=== PATIENT | female | born 1990 | race Caucasian/White ===

== ENCOUNTER 2018-09-20 13:56 | Emergency (ER) | payer OTHER ==
--- NOTE | 2018-09-20 14:36 | ED Physician Documentation ---
History of Present Illness - Stated complaint Stated Complaint: FACIAL NUMBNESS - Chief complaint Chief Complaint: Neuro - History obtained from History obtained from: Patient - History of Present Illness Timing: Other (1 month) Pain level max: 3 Pain level now: 0 Improved by: nothing Worsened by: nothing - Additonal information Additional information: 28-year-old female presents to the emergency department stating that she has intermittent numbness to the left side of her face. No weakness. No numbness or tingling. This lasts for a few minutes at a time and then generally resolves. This been ongoing for the past month or 2. No headache. Has had col on cancer in the past. She also states that she has sharp lancinating pain occasionally to the left side of the face Review of Systems Constitutional: denies: Fever, Chills Eyes: denies: Loss of vision, Decreased vision Ears: denies: Ear pain Nose: denies: Rhinorrhea / runny nose, Congestion Throat: denies: Sore throat Cardiac: denies: Chest pain / pressure GI: denies: Abdominal Pain, Nausea, Vomiting : denies: Now EGA Skin: denies: Rash Musculoskeletal: denies: Neck pain, Back pain Neurologic: denies: Seizure, Headache PD PAST MEDICAL HISTORY - Past Medical History Past Medical History: No - Past Surgical History Past Surgical History: No - Present Medications Home Medications: Ambulatory Orders Medication Instructions Recorded Confirmed carBAMazepine [TEGretol] 200 mg PO BID #20 tablet 09/20/18 - Allergies Allergies/Adverse Reactions: Allergies Allergy/AdvReac Type Severity Reaction Status Date / Time No Known Drug Allergies Allergy Verified 09/20/18 14:14 - Living Situation Living Arrangement: reports: At home - Social History Does the pt smoke?: No Does the pt have substance abuse?: No - Family History Family history: reports: Non contributory PD ED PE NORMAL - Vitals Vital signs reviewed: Yes - General General: Alert and oriented X 3, No acute distress, Well developed/nourished, Other (NIHSS @1423 is 0) - HEENT HEENT: PERRL, Ears normal, Moist mucous membranes, Pharynx benign, Dentition benign - Neck Neck: Supple, no meningeal sign, No JVD, No bruit - Cardiac Cardiac: RRR, No murmur, Strong equal pulses - Respiratory Respiratory: No respiratory distress, Clear bilaterally - Abdomen Abdomen: Soft, Non tender, Non distended - Back Back: No spinal TTP - Derm Derm: Warm and dry - Extremities Extremities: Normal ROM s pain - Neuro Neuro: Alert and oriented X 3, senior sharepoint architect 2-12 intact, No motor deficit, No sensory deficit, Normal speech - Psych Psych: Normal mood, Normal affect Results - Vitals Vitals: Vital Signs - 24 hr 09/20/18 09/20/18 14:11 15:04 Temperature 36.8 C 36.9 C Heart Rate 64 61 Respiratory 18 16 Rate Blood Pressure 122/78 120/70 O2 Saturation 100 97 Oxygen O2 Source Room air PD MEDICAL DECISION MAKING - ED course Complexity details: considered differential, d/w patient ED course: 28-year-old female with intermittent sharp pain in the V2 distribution of the left face. She also has numbness intermittently. This is in the same distribution. Normal exam at this time. Unclear etiology, possible trigeminal neuralgia? Will trial on Tegretol and see if this improves her symptoms. No evidence of stroke. Patient counseled regarding signs and symptoms for which I believe and urgent re-evaluation would be necessary. Patient with good understanding of and agreement to plan and is comfortable going home at this time This document was made in part using voice recognition software. While efforts are made to proofread this document, sound alike and grammatical errors may occur. Departure - Departure Disposition: 01 Home, Self Care Clinical Impression: Trigeminal anesthesia Condition: Good Instructions: ED Neuralgia Trigeminal Follow-Up: your,doctor in 1 week [Other] Prescriptions: carBAMazepine [TEGretol] 200 mg PO BID #20 tablet Comments: We will trial you on Tegretol and see if this helps her symptoms. Follow-up with your doctor for further care. If your symptoms do not improve then may consider an MRI or CT scan. Discharge Date/Time: 09/20/18 15:08
[2018-09-20 15:05] VITALS: BP 120/70
== END 2018-09-20 15:08 | disposition home or self-care (01) ==
LOC: ED 13:56
DX: G50.0 Trigeminal neuralgia (principal)
CPT/HCPCS: 99283

== ENCOUNTER 2019-03-05 18:32 | Emergency (ER) | payer OTHER ==
[2019-03-05 19:06] LABS: BASOPHILS % (AUTO) 0.4 %; EOSINOPHILS % (AUTO) 0.7 %; HGB - HEMOGLOBIN 14.2 g/dL (12.0-16.0); LYMPHOCYTES # (AUTO) 1.6 10^3/uL (1.5-3.5); LYMPHOCYTES % (AUTO) 29.5 %; MEAN CORPUSCULAR HEMOGLOBIN 31.1 pg (27.0-31.0); MEAN CORPUSCULAR HGB CONC 34.3 g/dL (32.0-36.0); MEAN CORPUSCULAR VOLUME 90.6 fL (81.0-99.0); MEAN PLATELET VOLUME 9.3 fL (7.9-10.8); MONOCYTES # (AUTO) 0.4 10^3/uL (0.0-1.0); MONOCYTES % (AUTO) 6.8 %; NEUTROPHILS # (AUTO) 3.5 10^3/uL (1.5-6.6); NEUTROPHILS % (AUTO) 62.2 %; PLT - PLATELET COUNT 220 10^3/uL (130-450); RED BLOOD COUNT 4.57 10^6/uL (4.20-5.40); RED CELL DISTRIBUTION WIDTH 12.6 % (12.0-15.0); WHITE BLOOD COUNT 5.6 x10^3/uL (4.8-10.8)
[2019-03-05 19:21] LABS: ALBUMIN 4.6 g/dL (3.2-5.5); ALBUMIN/GLOBULIN RATIO 1.8 (1.0-2.2); BILIRUBIN,TOTAL 0.4 mg/dL (0.2-1.0); CALCIUM 9.6 mg/dL (8.5-10.3); CREATININE 0.6 mg/dL (0.4-1.0); TOTAL PROTEIN 7.2 g/dL (6.7-8.2)
--- NOTE | 2019-03-05 19:37 | XRAY Report ---
Reason: chest pain Procedure Date: 03/05/2019 Accession Number: [id number] / [id number] Procedure: XR - Chest 1 View X-Ray CPT Code: 01792 FULL RESULT: EXAM: CHEST RADIOGRAPHY EXAM DATE: 03/05/2019 07:03 PM. CLINICAL HISTORY: Chest pain. COMPARISON: None. TECHNIQUE: 1 view. FINDINGS: Lungs/Pleura: No focal opacities evident. No pleural effusion. No pneumothorax. Mediastinum: Within exam limitations, the cardiomediastinal contour is normal. Other: None. IMPRESSION: Normal single view chest. RADIA
--- NOTE | 2019-03-05 19:49 | ED Physician Documentation ---
PD HPI CHEST PAIN - Stated complaint Stated Complaint: CP - Chief complaint Chief Complaint: Resp - History obtained from History obtained from: Patient - History of Present Illness Timing - onset: Today Timing - onset during: Other (driving) Timing - duration: Hours (6) Timing - details: Abrupt onset, Still present in ED Pain level now: 6 Quality: Sharp Location: Substernal, Left chest Radiation: No: Jaw, Neck Improved by: Rest Associated symptoms: No: Shortness of air, Diaphoresis, Nausea, Vomiting, Feeling faint / dizzy Recently seen: Not recently seen - Additional information Additional information: Is a 28-year-old woman who presents with complaints that around 2:00 this afternoon she was driving with her daughter in the backseat when she suddenly felt a intense pain in the left side of her chest when she was breathing in. She felt a little dizzy so she actually pulled over the side of the road and it started to ease off a little bit and the dizziness resolved. She continued driving home and spent the afternoon uncomfortable trying to lay down on the floor and play with her daughter. She took some ibuprofen about 600 mg it did not do anything to help alleviate the pain and she also took an antacid. Pain is eased off now to a dull 5 out of 6 pain just along the left side of her sternum. She recently took a trip to [place] by flight and says that she has not done any strenuous activity or recent heavy workouts. She is had a history of costochondritis in the past but felt like that was more on the left side of the chest. She denies recent illness of sore throat or stuffy nose. She does cough up some green-yellow phlegm on a frequent basis in the mornings. She denies history of DVT and denies stating her last menstrual period was February 20. She denies stating that she is abstinent. She does have a history of colon cancer with partial resection of her colon last March 2018. She is not receiving any chemotherapy. There is a strong family history of colon cancer. Review of Systems Constitutional: denies: Fever Nose: denies: Congestion Throat: denies: Sore throat Cardiac: reports: Chest pain / pressure. denies: Palpitations Respiratory: reports: Dyspnea. denies: Cough GI: denies: Abdominal Pain, Nausea, Vomiting, Diarrhea : denies: Dysuria, Now EGA Skin: denies: Rash Musculoskeletal: denies: Extremity pain Neurologic: denies: Focal weakness, Numbness, Syncope Endocrine: reports: Other (No diabetes) PD PAST MEDICAL HISTORY - Past Medical History GI: Other - Past Surgical History Past Surgical History: No - Present Medications Home Medications: Ambulatory Orders Medication Instructions Recorded Confirmed carBAMazepine [TEGretol] 200 mg PO BID #20 tablet 09/20/18 - Allergies Allergies/Adverse Reactions: Allergies Allergy/AdvReac Type Severity Reaction Status Date / Time No Known Drug Allergies Allergy Verified 03/05/19 18:36 - Social History Does the pt smoke?: No Smoking Status: Never smoker Does the pt drink ETOH?: Yes Does the pt have substance abuse?: No - Immunizations Immunizations are current?: Yes - POLST Patient has POLST: No PD ED PE NORMAL - Vitals Vital signs reviewed: Yes - General General: Alert and oriented X 3, No acute distress, Well developed/nourished - HEENT HEENT: Atraumatic, PERRL, EOMI, Ears normal, Moist mucous membranes, Pharynx benign - Neck Neck: Supple, no meningeal sign, No adenopathy, Thyroid normal, No JVD, No bruit - Cardiac Cardiac: RRR, No murmur, No rub, Strong equal pulses, Other (There is tenderness with palpation along the left costal sternal junctions at about rib 6 and 7) - Respiratory Respiratory: No respiratory distress, Clear bilaterally - Abdomen Abdomen: Normal bowel sounds, Soft, Non tender, Non distended, No organomegaly, Other (Well-healed incision below the umbilicus) - Derm Derm: Normal color, Warm and dry, No rash - Neuro Neuro: Alert and oriented X 3, sales performance analyst 2-12 intact, No motor deficit, No sensory deficit, Normal speech - Psych Psych: Normal mood, Normal affect Results - Vitals Vitals: Vital Signs - 24 hr 03/05/19 22:11 Heart Rate 61 Respiratory 14 Rate Blood Pressure 112/65 O2 Saturation 100 Oxygen O2 Source Room air - EKG (time done) 1843 Rate: Rate (enter#) (70) Rhythm: NSR Intervals: Normal IN Ischemia: Normal ST segments. No: T wave inversion - Labs Labs: Laboratory Tests 03/05/19 03/05/19 03/05/19 19:01 19:01 19:01 WBC 5.6 RBC 4.57 Hgb 14.2 Hct 41.4 MCV 90.6 MCH 31.1 H MCHC 34.3 RDW 12.6 Plt Count 220 MPV 9.3 Neut # (Auto) 3.5 Lymph # (Auto) 1.6 Floyd # (Auto) 0.4 Eos # (Auto) 0.0 Baso # (Auto) 0.0 Absolute Nucleated RBC 0.00 Nucleated RBC % 0.0 D-Dimer < 200.0 L Sodium 138 Potassium 3.9 Chloride 103 Carbon Dioxide 27 Anion Gap 8.0 BUN 20 Creatinine 0.6 Estimated GFR (MDRD) 121 Glucose 91 Calcium 9.6 Total Bilirubin 0.4 AST 25 ALT 25 Alkaline Phosphatase 54 Total Protein 7.2 Albumin 4.6 Globulin 2.6 Albumin/Globulin Ratio 1.8 Lipase 34 - Rads (name of study) cxr Radiology: EMP read contemporaneously (Neg acute), See rad report PD MEDICAL DECISION MAKING - ED course Complexity details: reviewed results, d/w patient ED course: Chest x-ray is negative. Her EKG does not show ischemic changes and her laboratory studies are normal including a negative d-dimer. Patient was offered further pain medications here which she declined. We discussed precautions for costochondritis using anti-inflammatory medications, ice and rest. [place] Departure - Departure Disposition: 01 Home, Self Care Clinical Impression: Costochondral chest pain Condition: Good Instructions: ED Chest Pain Costochondritis Follow-Up: PAYAM Daniels [Provider Group] Comments: Avoid any lifting with her arms, reaching overhead or strenuous exercise. Take ibuprofen up to 4 tablets every 8 hours with food. Ice the sore area on your chest. [place] Discharge Date/Time: 03/05/19 22:31
[2019-03-05 22:11] VITALS: BP 112/65
== END 2019-03-05 22:31 | disposition home or self-care (01) ==
LOC: ED 18:32
DX: R07.1 Chest pain on breathing (principal)
CPT/HCPCS: 36415; 71045; 80053; 83690; 85025; 85379; 93005; 99283; 99284

== ENCOUNTER 2020-04-17 13:16 | Emergency (ER) | payer OTHER ==
[2020-04-17 13:20] VITALS: BP 118/55
--- NOTE | 2020-04-17 13:26 | ED Physician Documentation ---
PD HPI HEENT - Stated complaint Stated Complaint: LT EAR PX - Chief complaint Chief Complaint: Heent - History obtained from History obtained from: Patient - Additional information Additional information: Left greater than right ear pain for the last day and a half with [place] congestion. No fevers. Review of Systems Constitutional: denies: Fever, Chills Ears: denies: Loss of hearing, Ear pain Nose: reports: Congestion. denies: Rhinorrhea / runny nose Throat: reports: Sore throat PD PAST MEDICAL HISTORY - Past Medical History Cardiovascular: None Respiratory: None Neuro: None Endocrine/Autoimmune: None GI: Other LOSS PREVENTION COORDINATOR: None : None HEENT: None Psych: None Musculoskeletal: None Derm: None - Past Surgical History Past Surgical History: No /LOSS PREVENTION COORDINATOR: Breast implants - Present Medications Home Medications: Ambulatory Orders Medication Instructions Recorded Confirmed carBAMazepine [TEGretol] 200 mg PO BID #20 tablet 09/20/18 Amoxicillin 500 mg PO TID #30 capsule 04/17/20 - Allergies Allergies/Adverse Reactions: Allergies Allergy/AdvReac Type Severity Reaction Status Date / Time No Known Drug Allergies Allergy Verified 04/17/20 13:17 - Social History Does the pt smoke?: No Smoking Status: Never smoker Does the pt drink ETOH?: Yes Does the pt have substance abuse?: No - Immunizations Immunizations are current?: Yes - POLST Patient has POLST: No PD ED PE NORMAL - Vitals Vital signs reviewed: Yes - General General: Alert and oriented X 3, No acute distress - HEENT HEENT: Pharynx benign, Other (She has bilateral otitis media) - Neck Neck: Supple, no meningeal sign, No bony TTP - Neuro Neuro: Alert and oriented X 3, Normal speech Results - Vitals Vitals: Vital Signs - 24 hr 04/17/20 13:17 Temperature 36.8 C Heart Rate 68 Respiratory 18 Rate Blood Pressure 118/55 L O2 Saturation 98 Oxygen O2 Source Room air Departure - Departure Disposition: 01 Home, Self Care Clinical Impression: BOM (bilateral otitis media) Qualifiers: Otitis media type: suppurative Chronicity: acute Recurrence: non-recurrent Spontaneous tympanic membrane rupture: without spontaneous rupture Qualified Code(s): H66.003 - Acute suppurative otitis media without spontaneous rupture of ear drum, bilateral Condition: Good Record reviewed to determine appropriate education?: Yes Instructions: ED Otitis Media Acute Adult Prescriptions: Amoxicillin 500 mg PO TID #30 capsule Comments: Recheck with your doctor in a week, drink plenty of fluids, ibuprofen as needed for pain. Return if worse.
== END 2020-04-17 13:43 | disposition home or self-care (01) ==
LOC: ED 13:16
DX: H66.003 Acute suppurative otitis media without spontaneous rupture of ear drum, bilateral (principal)
CPT/HCPCS: 99282; 99283

== ENCOUNTER 2020-08-18 08:00 | Outpatient (CLI) | payer OTHER ==
[2020-08-19 09:58] LABS: MUDS CUTOFF CONCENTRATIONS CUTOFF CONC BELOW:
[2020-08-19 11:17] LABS: BILIRUBIN,URINE NEGATIVE (NEGATIVE); GLUCOSE, URINE (UA) NEGATIVE (NEGATIVE); KETONES,URINE (UA) NEGATIVE (NEGATIVE); LEUKOCYTE ESTERASE, URINE NEGATIVE (NEGATIVE); NITRITE,URINE NEGATIVE (NEGATIVE); OCCULT BLOOD,URINE NEGATIVE (NEGATIVE); PROTEIN,URINE NEGATIVE (NEGATIVE); UROBILINOGEN,URINE 0.2 (NORMAL) E.U./dL (NORMAL)
[2020-08-19 11:18] LABS: CLARITY,URINE CLEAR (CLEAR)
[2020-08-19 11:29] LABS: AMPHETAMINE SCREEN,URINE NEGATIVE (NEGATIVE); BARBITURATE SCREEN,UR NEGATIVE (NEGATIVE); BENZODIAZEPINES SCREEN, URINE NEGATIVE (NEGATIVE); COCAINE SCREEN URINE NEGATIVE (NEGATIVE); METHADONE SCREEN, URINE NEGATIVE (NEGATIVE); METHAMPHETAMINES SCREEN, URINE NEGATIVE (NEGATIVE); OPIATE SCREEN, URINE NEGATIVE (NEGATIVE); OXYCODONE SCREEN, URINE NEGATIVE (NEGATIVE); PROPOXYPHENE SCREEN, URINE NEGATIVE (NEGATIVE); THC CANNABINOID SCREEN, URINE NEGATIVE (NEGATIVE); TRICYCLIC ANTIDEPRESSANT,URINE NEGATIVE (NEGATIVE); WBC,URINE 0-3 /HPF (0-5)
[2020-08-19 11:30] LABS: BACTERIA,URINE Few /HPF (None Seen); RBC,URINE 0-5 /HPF (0-5); SQUAMOUS EPITHELIAL CELL,UR RARE Squamous (<= Few)
== END 2020-08-18 23:59 | disposition home or self-care (01) ==
LOC: LAB.R 08:00
PROVIDERS: ATTEND Nurse Practitioner Obstetrics & Gynecology
DX: Z32.01 Encounter for pregnancy test, result positive (principal)
CPT/HCPCS: 80306; 81001; 87086

== ENCOUNTER 2020-08-27 15:36 | Outpatient (CLI) | payer OTHER | END 2020-08-27 15:37 | disposition home or self-care (01) | LOC: LAB.N 15:36 | PROVIDERS: ATTEND Nurse Practitioner Obstetrics & Gynecology | DX: Z32.01 Encounter for pregnancy test, result positive (principal); N89.8 Other specified noninflammatory disorders of vagina; R10.9 Unspecified abdominal pain | CPT/HCPCS: 36415; 84702 ==

== ENCOUNTER 2020-08-30 18:50 | Outpatient (CLI) | payer OTHER ==
--- NOTE | 2020-08-30 21:06 | Ultrasound Report ---
PROCEDURE: OB First Trimester w/TV INDICATIONS: POSITIVE TEST OUTSIDE/PRIOR DATING DATA: Last menstrual period (LMP): 07/08/2020. LMP-based estimated date of delivery (JUANI): 04/14/2021. First dating scan (date and location): 08/30/2020. Estimated date of delivery (JUANI) from first dating scan: 04/17/2021. TECHNIQUE: Real-time scanning was performed of the fetus and maternal pelvic organs, with image documentation. Endovaginal scanning was also performed to better visualize the fetus and maternal ovaries. COMPARISON: None FINDINGS: Embryo: Single intrauterine gestational sac is seen with fetus and small yolk sac seen. heart rate is 165 bpm. [place]-rump length measures 1.05 cm. Estimated gestational age based on current study is 7 weeks, 1 day. There is suggestion of small subchorionic hemorrhage measures 1.1 x 0.2 x 1.1 cm in size. Maternal organs: Right ovary contains a corpus luteal cyst measures 2.5 x 1.4 x 1.8 cm in size. Left ovary is within normal limits. IMPRESSION: 1. Single live intrauterine with fetus and yolk sac seen. heart rate is 1 65 bpm. Est imated gestational age is 7 weeks, 1 day. 2. Small subchorionic hemorrhage as above. 3. Right corpus luteal cyst as above. Reviewed by: Parminder Blanco MD on 08/30/2020 9:05 PM PDT Approved by: Parminder Blanco MD on 08/30/2020 9:05 PM PDT Station ID: [id number]
--- OUTSIDE RECORDS SUMMARY | 2020-09-03 02:37 | EXTERNAL MEDICAL SUMMARY RPT | Continuity of Care Document ---
:1990 Demographics Phone Unavailable Preferred Language Unknown Marital Status Unknown Sabianism Affiliation Unknown Race Unknown Ethnic Group Unknown Author Organization [facility] Address [address] [id number] Phone Care Team Providers Name Role Phone MA-Mert Unavailable Unavailable TIN DIPPER Unavailable Unavailable RN Unavailable Unavailable Malini Unavailable Unavailable TIN DIPPER Unavailable Unavailable Problems date description facility 20200818 Anxiety state, unspecified All 20200818 Health-related behavior All 20200818 History of malignant neoplasm of colon All 20200818 Never smoker All 20200818 US OB <14 WEEKS All 20200818 US TRANSVAGINAL, OB All 20200818 Anxiety disorder, unspecified All 20200818 Encounter for test, result po sitive All 20200818 Tobacco use and exposure All 20200818 Urinalysis with Microscopic Exam, Cultu re in Indicated All 20200818 Details of drug misuse behavior All 20200818 UTOX w/ Reflex Testing All 20200818 Anxiety All 20200818 Exercise All 20200818 Personal history of malignant neoplasm of large intestine All 20200818 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 20200818 examination or test, positive result All 20200818 test positive All 20200818 Alcohol use All 20200818 Employment detail All 20200818 Tobacco smoking status NHIS All 20200826 HCG, QUANTITATIVE All 20200826 Abdominal pain, unspecified site All 20200826 Unspecified abdominal pain All 20200826 Vaginal discharge All 20200826 Leukorrhea, not specified as infective All 20200826 Other specified noninflammatory disorde rs of vagina All 20200826 Stomach cramps All 20200827 HCG, QUANTITATIVE All Medications date description facility 20200818 YKBMMHHP-HJA-UZ-FA All 20200818 YFOGILBN-SOU-NC-FA All 20200818 SLBSTQUX-BFP-GF-FA All 20200818 OKXHJEGB-AST-FZ-FA All 20200818 TNGGFWQM-LWZ-HK-FA All 20200826 METOCLOPRAMIDE HCL All 20200826 METOCLOPRAMIDE HCL All 20200826 METOCLOPRAMIDE HCL All 20200826 METOCLOPRAMIDE HCL All 20200826 METOCLOPRAMIDE HCL All 20200826 METOCLOPRAMIDE HCL All [id number] METOCLOPRAMIDE HCL All [id number] METOCLOPRAMIDE HCL All Procedures date description facility [id number] US OB <14 WEEKS All date description facility [id number] UTOX w/ Reflex Testing All date description facility [id number] Urinalysis with Microscopic Exam, Cultu re in Indicated All date description facility [id number] [facility] All date description facility [id number] UTOX w/ Reflex Testing All date description facility [id number] Urinalysis with Microscopic Exam, Cultu re in Indicated All date description facility [id number] [facility] All date description facility [id number] UTOX w/ Reflex Testing All date description facility 20200818 Urinalysis with Microscopic Exam, Cultu re in Indicated All date description facility [id number] [facility] All date description facility [id number] UTOX w/ Reflex Testing All date description facility 20200818 Urinalysis with Microscopic Exam, Cultu re in Indicated All date description facility [id number] [facility] All date description facility [id number] UTOX w/ Reflex Testing All date description facility [id number] Urinalysis with Microscopic Exam, Cultu re in Indicated All date description facility [id number] [facility] All date description facility [id number] HCG, QUANTITATIVE All date description facility [id number] HCG, QUANTITATIVE All date description facility [id number] HCG, QUANTITATIVE All date description facility [id number] HCG, QUANTITATIVE All Results test status date ordered by attending specimen tadeo e BILIRUBIN_URINE unknown [id number] unknown unknown unknown CLARITY_URINE unknown [id number] unknown unknown unknown COLOR_URINE unknown 11063977 unknown unknown unknown GLUCOSE_URINE_UA_ unknown 84557234 unknown unknown unkno wn KETONES_URINE_UA_ unknown 56534081 unknown unknown unkno wn LEUKOCYTE_ESTERASE_URI unknown 43412280 unknown unknown unknown NE NITRITE_URINE unknown 49162692 unknown unknown unknown PH_URINE unknown 02544928 unknown unknown unknown T unknown 52589931 unknown unknown unknown T unknown 06960788 unknown unknown unknown T unknown 42632421 unknown unknown unknown T unknown 66543029 unknown unknown unknown T unknown 38114740 unknown unknown unknown T unknown 80568319 unknown unknown unknown T unknown 11328059 unknown unknown unknown T unknown 50737901 unknown unknown unknown T unknown 11840871 unknown unknown unknown T unknown 48953426 unknown unknown unknown T unknown 95686302 unknown unknown unknown SPECIFIC_GRAVITY_URINE unknown 20665081 unknown unknown unknown UROBILINOGEN_URINE unknown 88913626 unknown unknown unkn own WBC_URINE unknown 69972878 unknown unknown unknown WBC_urine_on_microscop unknown 76110265 unknown unknown unknown y Urine_HCG_Lot_Number_C unknown 13795591 unknown unknown unknown LIA_Waived_ Urine_HCG_Exp_Date_CLI unknown 99882761 unknown unknown unknown A_Waived_ Urine_HCG_QC_Result_CL unknown 11028311 unknown unknown unknown IA_Waived_ Choriogonadotropin_pre unknown 47246973 unknown unknown unknown gnancy_test_Presence_in _Urine Glucose_Mass_volume_in unknown 66970745 unknown unknown unknown _Urine human_chorionic_gonado unknown 77385549 unknown unknown unknown tropin_urine_qualitativ e_urine_pregnancy_test_ urine_color unknown 89239152 unknown unknown unknown bilirubin_urine unknown 57085740 unknown unknown unknown ketones_urine_by_test_ unknown 82325498 unknown unknown unknown strip nitrite_urine_semiquan unknown 16962974 unknown unknown unknown titative specific_gravity_urine unknown 68289550 unknown unknown unknown urobilinogen_urine_sem unknown 32789296 unknown unknown unknown iquantitative_dipstick_ leukocyte_esterase_uri unknown 60265595 unknown unknown unknown ne_by_dipstick glucose_urine unknown 62726927 unknown unknown unknown Herpes_Simplex_Virus_G unknown 35425688 unknown unknown unknown enital urinalysis_routine unknown 07846022 unknown unknown unkn own culture_status unknown 71066326 unknown unknown unknown pH_study_of_acidity unknown 23548354 unknown unknown unk nown clarity_urine_point unknown 41159308 unknown unknown unk nown Bilirubin.total_Presen unknown 85521013 unknown unknown unknown ce_in_Urine_by_Test_str ip Color_of_Urine unknown 73837507 unknown unknown unknown Ketones_Mass_volume_in unknown 42344428 unknown unknown unknown _Urine_by_Test_strip Leukocyte_esterase_Pre unknown 10792096 unknown unknown unknown sence_in_Urine_by_Test_ strip Nitrite_Presence_in_Ur unknown 22203540 unknown unknown unknown ine_by_Test_strip Specific_gravity_of_Ur unknown 10098889 unknown unknown unknown ine_by_Test_strip Urobilinogen_Presence_ unknown 54385627 unknown unknown unknown in_Urine_by_Test_strip WBC_urine_on_microscop unknown 80035240 unknown unknown unknown y pregnancy_test_date unknown 34054743 unknown unknown unk nown BILIRUBIN_URINE unknown 51906939 unknown unknown unknown CLARITY_URINE unknown 57479730 unknown unknown unknown COLOR_URINE unknown 66594612 unknown unknown unknown GLUCOSE_URINE_UA_ unknown 74569447 unknown unknown unkno wn KETONES_URINE_UA_ unknown 04532660 unknown unknown unkno wn LEUKOCYTE_ESTERASE_URI unknown 08334271 unknown unknown unknown NE NITRITE_URINE unknown 67719014 unknown unknown unknown PH_URINE unknown 62568920 unknown unknown unknown T unknown 55144769 unknown unknown unknown T unknown 77879498 unknown unknown unknown T unknown 03646676 unknown unknown unknown T unknown 22749512 unknown unknown unknown T unknown 54511872 unknown unknown unknown T unknown 53483532 unknown unknown unknown T unknown 57460218 unknown unknown unknown T unknown 92143842 unknown unknown unknown T unknown 18145678 unknown unknown unknown T unknown 94833416 unknown unknown unknown T unknown 40689664 unknown unknown unknown SPECIFIC_GRAVITY_URINE unknown 73582290 unknown unknown unknown UROBILINOGEN_URINE unknown 52577553 unknown unknown unkn own WBC_URINE unknown 16574145 unknown unknown unknown WBC_urine_on_microscop unknown 72989443 unknown unknown unknown y Urine_HCG_Lot_Number_C unknown 74996170 unknown unknown unknown LIA_Waived_ Urine_HCG_Exp_Date_CLI unknown 27097489 unknown unknown unknown A_Waived_ Urine_HCG_QC_Result_CL unknown 12715043 unknown unknown unknown IA_Waived_ Choriogonadotropin_pre unknown 86479206 unknown unknown unknown gnancy_test_Presence_in _Urine Glucose_Mass_volume_in unknown 85573040 unknown unknown unknown _Urine human_chorionic_gonado unknown 30368023 unknown unknown unknown tropin_urine_qualitativ e_urine_pregnancy_test_ urine_color unknown 55186149 unknown unknown unknown bilirubin_urine unknown 91975788 unknown unknown unknown ketones_urine_by_test_ unknown 52275696 unknown unknown unknown strip nitrite_urine_semiquan unknown 32415883 unknown unknown unknown titative specific_gravity_urine unknown 65458943 unknown unknown unknown urobilinogen_urine_sem unknown 79082801 unknown unknown unknown iquantitative_dipstick_ leukocyte_esterase_uri unknown 48691705 unknown unknown unknown ne_by_dipstick glucose_urine unknown 79228339 unknown unknown unknown Herpes_Simplex_Virus_G unknown 58214020 unknown unknown unknown enital urinalysis_routine unknown 86897546 unknown unknown unkn own culture_status unknown 54922384 unknown unknown unknown pH_study_of_acidity unknown 12300737 unknown unknown unk nown clarity_urine_point unknown 73828277 unknown unknown unk nown Bilirubin.total_Presen unknown 27534880 unknown unknown unknown ce_in_Urine_by_Test_str ip Color_of_Urine unknown 01294790 unknown unknown unknown Ketones_Mass_volume_in unknown 34900711 unknown unknown unknown _Urine_by_Test_strip Leukocyte_esterase_Pre unknown 47238215 unknown unknown unknown sence_in_Urine_by_Test_ strip Nitrite_Presence_in_Ur unknown 85485366 unknown unknown unknown ine_by_Test_strip Specific_gravity_of_Ur unknown 24473733 unknown unknown unknown ine_by_Test_strip Urobilinogen_Presence_ unknown 52787598 unknown unknown unknown in_Urine_by_Test_strip WBC_urine_on_microscop unknown 10097700 unknown unknown unknown y pregnancy_test_date unknown 25519310 unknown unknown unk nown BILIRUBIN_URINE unknown 19558175 unknown unknown unknown CLARITY_URINE unknown 08990303 unknown unknown unknown COLOR_URINE unknown 82057906 unknown unknown unknown GLUCOSE_URINE_UA_ unknown 78480791 unknown unknown unkno wn KETONES_URINE_UA_ unknown 78152514 unknown unknown unkno wn LEUKOCYTE_ESTERASE_URI unknown 21672293 unknown unknown unknown NE NITRITE_URINE unknown 68692703 unknown unknown unknown PH_URINE unknown 49050924 unknown unknown unknown T unknown 94210095 unknown unknown unknown T unknown 55328543 unknown unknown unknown T unknown 15013491 unknown unknown unknown T unknown 76972609 unknown unknown unknown T unknown 46020708 unknown unknown unknown T unknown 13225984 unknown unknown unknown T unknown 85042599 unknown unknown unknown T unknown 58365910 unknown unknown unknown T unknown [id number] unknown unknown unknown T unknown 12755375 unknown unknown unknown T unknown 12925209 unknown unknown unknown SPECIFIC_GRAVITY_URINE unknown 06318666 unknown unknown unknown UROBILINOGEN_URINE unknown 72780510 unknown unknown unkn own WBC_URINE unknown 91421338 unknown unknown unknown WBC_urine_on_microscop unknown 15845406 unknown unknown unknown y Urine_HCG_Lot_Number_C unknown 53995732 unknown unknown unknown LIA_Waived_ Urine_HCG_Exp_Date_CLI unknown 37885008 unknown unknown unknown A_Waived_ Urine_HCG_QC_Result_CL unknown 57153186 unknown unknown unknown IA_Waived_ Choriogonadotropin_pre unknown 24041391 unknown unknown unknown gnancy_test_Presence_in _Urine Glucose_Mass_volume_in unknown 77679446 unknown unknown unknown _Urine human_chorionic_gonado unknown 89339167 unknown unknown unknown tropin_urine_qualitativ e_urine_pregnancy_test_ urine_color unknown 58838454 unknown unknown unknown bilirubin_urine unknown 09938113 unknown unknown unknown ketones_urine_by_test_ unknown 80886362 unknown unknown unknown strip nitrite_urine_semiquan unknown 30040782 unknown unknown unknown titative specific_gravity_urine unknown 04118364 unknown unknown unknown urobilinogen_urine_sem unknown 15792707 unknown unknown unknown iquantitative_dipstick_ leukocyte_esterase_uri unknown 92822588 unknown unknown unknown ne_by_dipstick glucose_urine unknown 29403972 unknown unknown unknown Herpes_Simplex_Virus_G unknown 35024707 unknown unknown unknown enital urinalysis_routine unknown 55871124 unknown unknown unkn own culture_status unknown 80749224 unknown unknown unknown pH_study_of_acidity unknown 28516651 unknown unknown unk nown clarity_urine_point unknown 60611350 unknown unknown unk nown Bilirubin.total_Presen unknown 97500054 unknown unknown unknown ce_in_Urine_by_Test_str ip Color_of_Urine unknown 95607126 unknown unknown unknown Ketones_Mass_volume_in unknown 12482433 unknown unknown unknown _Urine_by_Test_strip Leukocyte_esterase_Pre unknown 33789143 unknown unknown unknown sence_in_Urine_by_Test_ strip Nitrite_Presence_in_Ur unknown 17946711 unknown unknown unknown ine_by_Test_strip Specific_gravity_of_Ur unknown 62789649 unknown unknown unknown ine_by_Test_strip Urobilinogen_Presence_ unknown 59390186 unknown unknown unknown in_Urine_by_Test_strip WBC_urine_on_microscop unknown 74942780 unknown unknown unknown y pregnancy_test_date unknown 11125769 unknown unknown unk nown BILIRUBIN_URINE unknown 03122089 unknown unknown unknown CLARITY_URINE unknown 69442424 unknown unknown unknown COLOR_URINE unknown 67819608 unknown unknown unknown GLUCOSE_URINE_UA_ unknown 95627663 unknown unknown unkno wn KETONES_URINE_UA_ unknown 01529816 unknown unknown unkno wn LEUKOCYTE_ESTERASE_URI unknown 08731691 unknown unknown unknown NE NITRITE_URINE unknown 32912806 unknown unknown unknown PH_URINE unknown 20763404 unknown unknown unknown T unknown 63728361 unknown unknown unknown T unknown 19781599 unknown unknown unknown T unknown 57700772 unknown unknown unknown T unknown 53977169 unknown unknown unknown T unknown 59465412 unknown unknown unknown T unknown 33780578 unknown unknown unknown T unknown 38868881 unknown unknown unknown T unknown 02986619 unknown unknown unknown T unknown 46871363 unknown unknown unknown T unknown 14652923 unknown unknown unknown T unknown 84754280 unknown unknown unknown SPECIFIC_GRAVITY_URINE unknown 67656395 unknown unknown unknown UROBILINOGEN_URINE unknown 73199074 unknown unknown unkn own WBC_URINE unknown 87458783 unknown unknown unknown WBC_urine_on_microscop unknown 79421428 unknown unknown unknown y Urine_HCG_Lot_Number_C unknown 46931421 unknown unknown unknown LIA_Waived_ Urine_HCG_Exp_Date_CLI unknown 37600251 unknown unknown unknown A_Waived_ Urine_HCG_QC_Result_CL unknown 73765877 unknown unknown unknown IA_Waived_ Choriogonadotropin_pre unknown 95148536 unknown unknown unknown gnancy_test_Presence_in _Urine Glucose_Mass_volume_in unknown 33886462 unknown unknown unknown _Urine human_chorionic_gonado unknown 58409323 unknown unknown unknown tropin_urine_qualitativ e_urine_pregnancy_test_ urine_color unknown 13385793 unknown unknown unknown bilirubin_urine unknown 88329610 unknown unknown unknown ketones_urine_by_test_ unknown 52747129 unknown unknown unknown strip nitrite_urine_semiquan unknown 92427304 unknown unknown unknown titative specific_gravity_urine unknown 23941147 unknown unknown unknown urobilinogen_urine_sem unknown 24811831 unknown unknown unknown iquantitative_dipstick_ leukocyte_esterase_uri unknown 41078028 unknown unknown unknown ne_by_dipstick glucose_urine unknown 19994882 unknown unknown unknown Herpes_Simplex_Virus_G unknown 37906250 unknown unknown unknown enital urinalysis_routine unknown 06809363 unknown unknown unkn own culture_status unknown 07421659 unknown unknown unknown pH_study_of_acidity unknown 64377719 unknown unknown unk nown clarity_urine_point unknown 82680775 unknown unknown unk nown Bilirubin.total_Presen unknown 36863671 unknown unknown unknown ce_in_Urine_by_Test_str ip Color_of_Urine unknown 02625034 unknown unknown unknown Ketones_Mass_volume_in unknown 87950389 unknown unknown unknown _Urine_by_Test_strip Leukocyte_esterase_Pre unknown 01446521 unknown unknown unknown sence_in_Urine_by_Test_ strip Nitrite_Presence_in_Ur unknown 53513039 unknown unknown unknown ine_by_Test_strip Specific_gravity_of_Ur unknown 59353086 unknown unknown unknown ine_by_Test_strip Urobilinogen_Presence_ unknown 03789030 unknown unknown unknown in_Urine_by_Test_strip WBC_urine_on_microscop unknown 94735798 unknown unknown unknown y pregnancy_test_date unknown 92584972 unknown unknown unk nown BILIRUBIN_URINE unknown 92729940 unknown unknown unknown CLARITY_URINE unknown 17926627 unknown unknown unknown COLOR_URINE unknown 51233562 unknown unknown unknown GLUCOSE_URINE_UA_ unknown 40531260 unknown unknown unkno wn KETONES_URINE_UA_ unknown 58714787 unknown unknown unkno wn LEUKOCYTE_ESTERASE_URI unknown 69651210 unknown unknown unknown NE NITRITE_URINE unknown 88147249 unknown unknown unknown PH_URINE unknown 62511473 unknown unknown unknown T unknown 84536379 unknown unknown unknown T unknown 58525552 unknown unknown unknown T unknown 68008630 unknown unknown unknown T unknown 04932886 unknown unknown unknown T unknown 16773226 unknown unknown unknown T unknown 88691154 unknown unknown unknown T unknown 65060943 unknown unknown unknown T unknown 81608665 unknown unknown unknown T unknown 41855428 unknown unknown unknown T unknown 95445640 unknown unknown unknown T unknown 75993358 unknown unknown unknown SPECIFIC_GRAVITY_URINE unknown 43658763 unknown unknown unknown UROBILINOGEN_URINE unknown 94079759 unknown unknown unkn own WBC_URINE unknown 53305243 unknown unknown unknown WBC_urine_on_microscop unknown 62954070 unknown unknown unknown y Urine_HCG_Lot_Number_C unknown 18224403 unknown unknown unknown LIA_Waived_ Urine_HCG_Exp_Date_CLI unknown 70305007 unknown unknown unknown A_Waived_ Urine_HCG_QC_Result_CL unknown 89503309 unknown unknown unknown IA_Waived_ Choriogonadotropin_pre unknown 20601751 unknown unknown unknown gnancy_test_Presence_in _Urine Glucose_Mass_volume_in unknown 26951240 unknown unknown unknown _Urine human_chorionic_gonado unknown 85687375 unknown unknown unknown tropin_urine_qualitativ e_urine_pregnancy_test_ urine_color unknown 68529061 unknown unknown unknown bilirubin_urine unknown 22731686 unknown unknown unknown ketones_urine_by_test_ unknown 09185642 unknown unknown unknown strip nitrite_urine_semiquan unknown 39202237 unknown unknown unknown titative specific_gravity_urine unknown 78741410 unknown unknown unknown urobilinogen_urine_sem unknown 90203777 unknown unknown unknown iquantitative_dipstick_ leukocyte_esterase_uri unknown 03253242 unknown unknown unknown ne_by_dipstick glucose_urine unknown 44638704 unknown unknown unknown Herpes_Simplex_Virus_G unknown 45581217 unknown unknown unknown enital urinalysis_routine unknown 82360557 unknown unknown unkn own culture_status unknown 03057094 unknown unknown unknown pH_study_of_acidity unknown 85402924 unknown unknown unk nown clarity_urine_point unknown 92552090 unknown unknown unk nown Bilirubin.total_Presen unknown 82313012 unknown unknown unknown ce_in_Urine_by_Test_str ip Color_of_Urine unknown 65933000 unknown unknown unknown Ketones_Mass_volume_in unknown 63051697 unknown unknown unknown _Urine_by_Test_strip Leukocyte_esterase_Pre unknown 43097866 unknown unknown unknown sence_in_Urine_by_Test_ strip Nitrite_Presence_in_Ur unknown 69686921 unknown unknown unknown ine_by_Test_strip Specific_gravity_of_Ur unknown 16158251 unknown unknown unknown ine_by_Test_strip Urobilinogen_Presence_ unknown 37354786 unknown unknown unknown in_Urine_by_Test_strip WBC_urine_on_microscop unknown 22338280 unknown unknown unknown y pregnancy_test_date unknown 75587662 unknown unknown unk nown facility observation status value reference units lab code abn ormal line range notes All BILIRUBIN_UR unknown NEGATIVE unknown UBIL unkno wn unknown INE All CLARITY_URIN unknown CLEAR unknown UCLAR unknown unknown E All COLOR_URINE unknown LIGHT unknown UCOL unknown unknown YELLOW All GLUCOSE_URIN unknown NEGATIVE unknown UGLUC unkno wn unknown E_UA_ mg/dL All KETONES_URIN unknown NEGATIVE unknown UKET unkno wn unknown E_UA_ All LEUKOCYTE_ES unknown NEGATIVE unknown ULEUK unkno wn unknown TERASE_URINE All NITRITE_URIN unknown NEGATIVE unknown UNITRITE unk nown unknown E All PH_URINE unknown 7.0 unknown UPH unknown un known All T unknown NEGATIVE unknown UR_BILI unknown u nknown All T unknown CLEAR unknown UR_CLARI unknown un known TY All T unknown LIGHT unknown UR_COLOR unknown un known YELLOW All T unknown NEGATIVE unknown UR_GLU unknown un known mg/dL All T unknown NEGATIVE unknown UR_KETO_ unknown unknown UA_ All T unknown NEGATIVE unknown UR_LEU_E unknown unknown STERASE All T unknown NEGATIVE unknown UR_NIT unknown un known All T unknown 7.0 unknown UR_PH unknown unkn own All T unknown 1.010 unknown UR_SG unknown unkn own All T unknown 0.2 unknown UR_URO unknown unkn own (NORMAL) All T unknown 0-3 /HPF unknown UR_WBC unknown un known All SPECIFIC_GRA unknown 1.010 unknown USG unknown unknown VITY_URINE All UROBILINOGEN unknown 0.2 unknown UUROBIL unknow n unknown _URINE (NORMAL) All WBC_URINE unknown 0-3 /HPF unknown UWBC unknown unknown All WBC_urine_on unknown 0-3 /HPF unknown _1016 unkno wn unknown _microscopy All Urine_HCG_Lo unknown 98525 unknown _114940 unknow n unknown t_Number_CLIA _Waived_ All Urine_HCG_Ex unknown unknown _114941 unk nown unknown p_Date_CLIA_W 2 aived_ All Urine_HCG_QC unknown Yes unknown _114942 unknow n unknown _Result_CLIA_ Waived_ All Choriogonado unknown Positive unknown _6- unkn own unknown tropin_pregna ncy_test_Pres ence_in_Urine All Glucose_Mass unknown NEGATIVE unknown _0-7 unkn own unknown _volume_in_Ur mg/dL ine All human_chorio unknown Positive unknown _2578 unkno wn unknown nic_gonadotro pin_urine_qua litative_urin e_pregnancy_t est_ All urine_color unknown LIGHT unknown _2751 unknown unknown YELLOW All bilirubin_ur unknown NEGATIVE unknown _319 unkno wn unknown ine All ketones_urin unknown NEGATIVE unknown _322 unkno wn unknown e_by_test_str ip All nitrite_urin unknown NEGATIVE unknown _323 unkno wn unknown e_semiquantit ative All specific_gra unknown 1.010 unknown _325 unknown unknown vity_urine All urobilinogen unknown 0.2 unknown _326 unknown unknown _urine_semiqu (NORMAL) antitative_di pstick_ All leukocyte_es unknown NEGATIVE unknown _327 unkno wn unknown terase_urine_ by_dipstick All glucose_urin unknown NEGATIVE unknown _3369 unkno wn unknown e mg/dL All Herpes_Simpl unknown no unknown _4258 unknown unknown ex_Virus_Geni maciej All urinalysis_r unknown Clean unknown _47 unknown unknown outine Catch All culture_stat unknown Yes unknown _51015 unknown unknown us All pH_study_of_ unknown 7.0 unknown _51641 unknown unknown acidity All clarity_urin unknown CLEAR unknown _5589 unknown unknown e_point All Bilirubin.to unknown NEGATIVE unknown _5770-3 unkn own unknown tal_Presence_ in_Urine_by_T est_strip All Color_of_Uri unknown LIGHT unknown _5778-6 unknow n unknown ne YELLOW All Ketones_Mass unknown NEGATIVE unknown _5797-6 unkn own unknown _volume_in_Ur ine_by_Test_s trip All Leukocyte_es unknown NEGATIVE unknown _5799-2 unkn own unknown terase_Presen ce_in_Urine_b y_Test_strip All Nitrite_Pres unknown NEGATIVE unknown _5802-4 unkn own unknown ence_in_Urine _by_Test_stri p All Specific_gra unknown 1.010 unknown _5811-5 unknow n unknown vity_of_Urine _by_Test_stri p All Urobilinogen unknown 0.2 unknown _5818-0 unknow n unknown _Presence_in_ (NORMAL) Urine_by_Test _strip All WBC_urine_on unknown 0-3 /HPF unknown _5821-4 unkn own unknown _microscopy All pregnancy_te unknown unknown _[address]_date 1 All BILIRUBIN_UR unknown NEGATIVE unknown UBIL unkno wn unknown INE All CLARITY_URIN unknown CLEAR unknown UCLAR unknown unknown E All COLOR_URINE unknown LIGHT unknown UCOL unknown unknown YELLOW All GLUCOSE_URIN unknown NEGATIVE unknown UGLUC unkno wn unknown E_UA_ mg/dL All KETONES_URIN unknown NEGATIVE unknown UKET unkno wn unknown E_UA_ All LEUKOCYTE_ES unknown NEGATIVE unknown ULEUK unkno wn unknown TERASE_URINE All NITRITE_URIN unknown NEGATIVE unknown UNITRITE unk nown unknown E All PH_URINE unknown 7.0 unknown UPH unknown un known All T unknown NEGATIVE unknown UR_BILI unknown u nknown All T unknown CLEAR unknown UR_CLARI unknown un known TY All T unknown LIGHT unknown UR_COLOR unknown un known YELLOW All T unknown NEGATIVE unknown UR_GLU unknown un known mg/dL All T unknown NEGATIVE unknown UR_KETO_ unknown unknown UA_ All T unknown NEGATIVE unknown UR_LEU_E unknown unknown STERASE All T unknown NEGATIVE unknown UR_NIT unknown un known All T unknown 7.0 unknown UR_PH unknown unkn own All T unknown 1.010 unknown UR_SG unknown unkn own All T unknown 0.2 unknown UR_URO unknown unkn own (NORMAL) All T unknown 0-3 /HPF unknown UR_WBC unknown un known All SPECIFIC_GRA unknown 1.010 unknown USG unknown unknown VITY_URINE All UROBILINOGEN unknown 0.2 unknown UUROBIL unknow n unknown _URINE (NORMAL) All WBC_URINE unknown 0-3 /HPF unknown UWBC unknown unknown All WBC_urine_on unknown 0-3 /HPF unknown _1016 unkno wn unknown _microscopy All Urine_HCG_Lo unknown 47939 unknown _114940 unknow n unknown t_Number_CLIA _Waived_ All Urine_HCG_Ex unknown unknown _114941 unk nown unknown p_Date_CLIA_W 2 aived_ All Urine_HCG_QC unknown Yes unknown _114942 unknow n unknown _Result_CLIA_ Waived_ All Choriogonado unknown Positive unknown _6- unkn own unknown tropin_pregna ncy_test_Pres ence_in_Urine All Glucose_Mass unknown NEGATIVE unknown _2350-7 unkn own unknown _volume_in_Ur mg/dL ine All human_chorio unknown Positive unknown _2578 unkno wn unknown nic_gonadotro pin_urine_qua litative_urin e_pregnancy_t est_ All urine_color unknown LIGHT unknown _2751 unknown unknown YELLOW All bilirubin_ur unknown NEGATIVE unknown _319 unkno wn unknown ine All ketones_urin unknown NEGATIVE unknown _322 unkno wn unknown e_by_test_str ip All nitrite_urin unknown NEGATIVE unknown _323 unkno wn unknown e_semiquantit ative All specific_gra unknown 1.010 unknown _325 unknown unknown vity_urine All urobilinogen unknown 0.2 unknown _326 unknown unknown _urine_semiqu (NORMAL) antitative_di pstick_ All leukocyte_es unknown NEGATIVE unknown _327 unkno wn unknown terase_urine_ by_dipstick All glucose_urin unknown NEGATIVE unknown _3369 unkno wn unknown e mg/dL All Herpes_Simpl unknown no unknown _4258 unknown unknown ex_Virus_Geni maciej All urinalysis_r unknown Clean unknown _47 unknown unknown outine Catch All culture_stat unknown Yes unknown _51015 unknown unknown us All pH_study_of_ unknown 7.0 unknown _51641 unknown unknown acidity All clarity_urin unknown CLEAR unknown _5589 unknown unknown e_point All Bilirubin.to unknown NEGATIVE unknown _5770-3 unkn own unknown tal_Presence_ in_Urine_by_T est_strip All Color_of_Uri unknown LIGHT unknown _5778-6 unknow n unknown ne YELLOW All Ketones_Mass unknown NEGATIVE unknown _5797-6 unkn own unknown _volume_in_Ur ine_by_Test_s trip All Leukocyte_es unknown NEGATIVE unknown _5799-2 unkn own unknown terase_Presen ce_in_Urine_b y_Test_strip All Nitrite_Pres unknown NEGATIVE unknown _5802-4 unkn own unknown ence_in_Urine _by_Test_stri p All Specific_gra unknown 1.010 unknown _5811-5 unknow n unknown vity_of_Urine _by_Test_stri p All Urobilinogen unknown 0.2 unknown _5818-0 unknow n unknown _Presence_in_ (NORMAL) Urine_by_Test _strip All WBC_urine_on unknown 0-3 /HPF unknown _5821-4 unkn own unknown _microscopy All pregnancy_te unknown unknown _[address]_date 1 All BILIRUBIN_UR unknown NEGATIVE unknown UBIL unkno wn unknown INE All CLARITY_URIN unknown CLEAR unknown UCLAR unknown unknown E All COLOR_URINE unknown LIGHT unknown UCOL unknown unknown YELLOW All GLUCOSE_URIN unknown NEGATIVE unknown UGLUC unkno wn unknown E_UA_ mg/dL All KETONES_URIN unknown NEGATIVE unknown UKET unkno wn unknown E_UA_ All LEUKOCYTE_ES unknown NEGATIVE unknown ULEUK unkno wn unknown TERASE_URINE All NITRITE_URIN unknown NEGATIVE unknown UNITRITE unk nown unknown E All PH_URINE unknown 7.0 unknown UPH unknown un known All T unknown NEGATIVE unknown UR_BILI unknown u nknown All T unknown CLEAR unknown UR_CLARI unknown un known TY All T unknown LIGHT unknown UR_COLOR unknown un known YELLOW All T unknown NEGATIVE unknown UR_GLU unknown un known mg/dL All T unknown NEGATIVE unknown UR_KETO_ unknown unknown UA_ All T unknown NEGATIVE unknown UR_LEU_E unknown unknown STERASE All T unknown NEGATIVE unknown UR_NIT unknown un known All T unknown 7.0 unknown UR_PH unknown unkn own All T unknown 1.010 unknown UR_SG unknown unkn own All T unknown 0.2 unknown UR_URO unknown unkn own (NORMAL) All T unknown 0-3 /HPF unknown UR_WBC unknown un known All SPECIFIC_GRA unknown 1.010 unknown USG unknown unknown VITY_URINE All UROBILINOGEN unknown 0.2 unknown UUROBIL unknow n unknown _URINE (NORMAL) All WBC_URINE unknown 0-3 /HPF unknown UWBC unknown unknown All WBC_urine_on unknown 0-3 /HPF unknown _1016 unkno wn unknown _microscopy All Urine_HCG_Lo unknown 73662 unknown _114940 unknow n unknown t_Number_CLIA _Waived_ All Urine_HCG_Ex unknown unknown _114941 unk nown unknown p_Date_CLIA_W 2 aived_ All Urine_HCG_QC unknown Yes unknown _114942 unknow n unknown _Result_CLIA_ Waived_ All Choriogonado unknown Positive unknown _2106-3 unkn own unknown tropin_pregna ncy_test_Pres ence_in_Urine All Glucose_Mass unknown NEGATIVE unknown _2350-7 unkn own unknown _volume_in_Ur mg/dL ine All human_chorio unknown Positive unknown _2578 unkno wn unknown nic_gonadotro pin_urine_qua litative_urin e_pregnancy_t est_ All urine_color unknown LIGHT unknown _2751 unknown unknown YELLOW All bilirubin_ur unknown NEGATIVE unknown _319 unkno wn unknown ine All ketones_urin unknown NEGATIVE unknown _322 unkno wn unknown e_by_test_str ip All nitrite_urin unknown NEGATIVE unknown _323 unkno wn unknown e_semiquantit ative All specific_gra unknown 1.010 unknown _325 unknown unknown vity_urine All urobilinogen unknown 0.2 unknown _326 unknown unknown _urine_semiqu (NORMAL) antitative_di pstick_ All leukocyte_es unknown NEGATIVE unknown _327 unkno wn unknown terase_urine_ by_dipstick All glucose_urin unknown NEGATIVE unknown _3369 unkno wn unknown e mg/dL All Herpes_Simpl unknown no unknown _4258 unknown unknown ex_Virus_Geni maciej All urinalysis_r unknown Clean unknown _47 unknown unknown outine Catch All culture_stat unknown Yes unknown _51015 unknown unknown us All pH_study_of_ unknown 7.0 unknown _51641 unknown unknown acidity All clarity_urin unknown CLEAR unknown _5589 unknown unknown e_point All Bilirubin.to unknown NEGATIVE unknown _5770-3 unkn own unknown tal_Presence_ in_Urine_by_T est_strip All Color_of_Uri unknown LIGHT unknown _5778-6 unknow n unknown ne YELLOW All Ketones_Mass unknown NEGATIVE unknown _5797-6 unkn own unknown _volume_in_Ur ine_by_Test_s trip All Leukocyte_es unknown NEGATIVE unknown _5799-2 unkn own unknown terase_Presen ce_in_Urine_b y_Test_strip All Nitrite_Pres unknown NEGATIVE unknown _5802-4 unkn own unknown ence_in_Urine _by_Test_stri p All Specific_gra unknown 1.010 unknown _5811-5 unknow n unknown vity_of_Urine _by_Test_stri p All Urobilinogen unknown 0.2 unknown _5818-0 unknow n unknown _Presence_in_ (NORMAL) Urine_by_Test _strip All WBC_urine_on unknown 0-3 /HPF unknown _5821-4 unkn own unknown _microscopy All pregnancy_te unknown unknown _[address]_date 1 All BILIRUBIN_UR unknown NEGATIVE unknown UBIL unkno wn unknown INE All CLARITY_URIN unknown CLEAR unknown UCLAR unknown unknown E All COLOR_URINE unknown LIGHT unknown UCOL unknown unknown YELLOW All GLUCOSE_URIN unknown NEGATIVE unknown UGLUC unkno wn unknown E_UA_ mg/dL All KETONES_URIN unknown NEGATIVE unknown UKET unkno wn unknown E_UA_ All LEUKOCYTE_ES unknown NEGATIVE unknown ULEUK unkno wn unknown TERASE_URINE All NITRITE_URIN unknown NEGATIVE unknown UNITRITE unk nown unknown E All PH_URINE unknown 7.0 unknown UPH unknown un known All T unknown NEGATIVE unknown UR_BILI unknown u nknown All T unknown CLEAR unknown UR_CLARI unknown un known TY All T unknown LIGHT unknown UR_COLOR unknown un known YELLOW All T unknown NEGATIVE unknown UR_GLU unknown un known mg/dL All T unknown NEGATIVE unknown UR_KETO_ unknown unknown UA_ All T unknown NEGATIVE unknown UR_LEU_E unknown unknown STERASE All T unknown NEGATIVE unknown UR_NIT unknown un known All T unknown 7.0 unknown UR_PH unknown unkn own All T unknown 1.010 unknown UR_SG unknown unkn own All T unknown 0.2 unknown UR_URO unknown unkn own (NORMAL) All T unknown 0-3 /HPF unknown UR_WBC unknown un known All SPECIFIC_GRA unknown 1.010 unknown USG unknown unknown VITY_URINE All UROBILINOGEN unknown 0.2 unknown UUROBIL unknow n unknown _URINE (NORMAL) All WBC_URINE unknown 0-3 /HPF unknown UWBC unknown unknown All WBC_urine_on unknown 0-3 /HPF unknown _1016 unkno wn unknown _microscopy All Urine_HCG_Lo unknown 39195 unknown _114940 unknow n unknown t_Number_CLIA _Waived_ All Urine_HCG_Ex unknown unknown _114941 unk nown unknown p_Date_CLIA_W 2 aived_ All Urine_HCG_QC unknown Yes unknown _114942 unknow n unknown _Result_CLIA_ Waived_ All Choriogonado unknown Positive unknown _2106-3 unkn own unknown tropin_pregna ncy_test_Pres ence_in_Urine All Glucose_Mass unknown NEGATIVE unknown _2350-7 unkn own unknown _volume_in_Ur mg/dL ine All human_chorio unknown Positive unknown _2578 unkno wn unknown nic_gonadotro pin_urine_qua litative_urin e_pregnancy_t est_ All urine_color unknown LIGHT unknown _2751 unknown unknown YELLOW All bilirubin_ur unknown NEGATIVE unknown _319 unkno wn unknown ine All ketones_urin unknown NEGATIVE unknown _322 unkno wn unknown e_by_test_str ip All nitrite_urin unknown NEGATIVE unknown _323 unkno wn unknown e_semiquantit ative All specific_gra unknown 1.010 unknown _325 unknown unknown vity_urine All urobilinogen unknown 0.2 unknown _326 unknown unknown _urine_semiqu (NORMAL) antitative_di pstick_ All leukocyte_es unknown NEGATIVE unknown _327 unkno wn unknown terase_urine_ by_dipstick All glucose_urin unknown NEGATIVE unknown _3369 unkno wn unknown e mg/dL All Herpes_Simpl unknown no unknown _4258 unknown unknown ex_Virus_Geni maciej All urinalysis_r unknown Clean unknown _47 unknown unknown outine Catch All culture_stat unknown Yes unknown _51015 unknown unknown us All pH_study_of_ unknown 7.0 unknown _51641 unknown unknown acidity All clarity_urin unknown CLEAR unknown _5589 unknown unknown e_point All Bilirubin.to unknown NEGATIVE unknown _5770-3 unkn own unknown tal_Presence_ in_Urine_by_T est_strip All Color_of_Uri unknown LIGHT unknown _5778-6 unknow n unknown ne YELLOW All Ketones_Mass unknown NEGATIVE unknown _5797-6 unkn own unknown _volume_in_Ur ine_by_Test_s trip All Leukocyte_es unknown NEGATIVE unknown _5799-2 unkn own unknown terase_Presen ce_in_Urine_b y_Test_strip All Nitrite_Pres unknown NEGATIVE unknown _5802-4 unkn own unknown ence_in_Urine _by_Test_stri p All Specific_gra unknown 1.010 unknown _5811-5 unknow n unknown vity_of_Urine _by_Test_stri p All Urobilinogen unknown 0.2 unknown _5818-0 unknow n unknown _Presence_in_ (NORMAL) Urine_by_Test _strip All WBC_urine_on unknown 0-3 /HPF unknown _5821-4 unkn own unknown _microscopy All pregnancy_te unknown unknown _[address]_date 1 All BILIRUBIN_UR unknown NEGATIVE unknown UBIL unkno wn unknown INE All CLARITY_URIN unknown CLEAR unknown UCLAR unknown unknown E All COLOR_URINE unknown LIGHT unknown UCOL unknown unknown YELLOW All GLUCOSE_URIN unknown NEGATIVE unknown UGLUC unkno wn unknown E_UA_ mg/dL All KETONES_URIN unknown NEGATIVE unknown UKET unkno wn unknown E_UA_ All LEUKOCYTE_ES unknown NEGATIVE unknown ULEUK unkno wn unknown TERASE_URINE All NITRITE_URIN unknown NEGATIVE unknown UNITRITE unk nown unknown E All PH_URINE unknown 7.0 unknown UPH unknown un known All T unknown NEGATIVE unknown UR_BILI unknown u nknown All T unknown CLEAR unknown UR_CLARI unknown un known TY All T unknown LIGHT unknown UR_COLOR unknown un known YELLOW All T unknown NEGATIVE unknown UR_GLU unknown un known mg/dL All T unknown NEGATIVE unknown UR_KETO_ unknown unknown UA_ All T unknown NEGATIVE unknown UR_LEU_E unknown unknown STERASE All T unknown NEGATIVE unknown UR_NIT unknown un known All T unknown 7.0 unknown UR_PH unknown unkn own All T unknown 1.010 unknown UR_SG unknown unkn own All T unknown 0.2 unknown UR_URO unknown unkn own (NORMAL) All T unknown 0-3 /HPF unknown UR_WBC unknown un known All SPECIFIC_GRA unknown 1.010 unknown USG unknown unknown VITY_URINE All UROBILINOGEN unknown 0.2 unknown UUROBIL unknow n unknown _URINE (NORMAL) All WBC_URINE unknown 0-3 /HPF unknown UWBC unknown unknown All WBC_urine_on unknown 0-3 /HPF unknown _1016 unkno wn unknown _microscopy All Urine_HCG_Lo unknown 56964 unknown _114940 unknow n unknown t_Number_CLIA _Waived_ All Urine_HCG_Ex unknown unknown _114941 unk nown unknown p_Date_CLIA_W 2 aived_ All Urine_HCG_QC unknown Yes unknown _114942 unknow n unknown _Result_CLIA_ Waived_ All Choriogonado unknown Positive unknown _2106-3 unkn own unknown tropin_pregna ncy_test_Pres ence_in_Urine All Glucose_Mass unknown NEGATIVE unknown _2350-7 unkn own unknown _volume_in_Ur mg/dL ine All human_chorio unknown Positive unknown _2578 unkno wn unknown nic_gonadotro pin_urine_qua litative_urin e_pregnancy_t est_ All urine_color unknown LIGHT unknown _2751 unknown unknown YELLOW All bilirubin_ur unknown NEGATIVE unknown _319 unkno wn unknown ine All ketones_urin unknown NEGATIVE unknown _322 unkno wn unknown e_by_test_str ip All nitrite_urin unknown NEGATIVE unknown _323 unkno wn unknown e_semiquantit ative All specific_gra unknown 1.010 unknown _325 unknown unknown vity_urine All urobilinogen unknown 0.2 unknown _326 unknown unknown _urine_semiqu (NORMAL) antitative_di pstick_ All leukocyte_es unknown NEGATIVE unknown _327 unkno wn unknown terase_urine_ by_dipstick All glucose_urin unknown NEGATIVE unknown _3369 unkno wn unknown e mg/dL All Herpes_Simpl unknown no unknown _4258 unknown unknown ex_Virus_Geni maciej All urinalysis_r unknown Clean unknown _47 unknown unknown outine Catch All culture_stat unknown Yes unknown _51015 unknown unknown us All pH_study_of_ unknown 7.0 unknown _51641 unknown unknown acidity All clarity_urin unknown CLEAR unknown _5589 unknown unknown e_point All Bilirubin.to unknown NEGATIVE unknown _5770-3 unkn own unknown tal_Presence_ in_Urine_by_T est_strip All Color_of_Uri unknown LIGHT unknown _5778-6 unknow n unknown ne YELLOW All Ketones_Mass unknown NEGATIVE unknown _5797-6 unkn own unknown _volume_in_Ur ine_by_Test_s trip All Leukocyte_es unknown NEGATIVE unknown _5799-2 unkn own unknown terase_Presen ce_in_Urine_b y_Test_strip All Nitrite_Pres unknown NEGATIVE unknown _5802-4 unkn own unknown ence_in_Urine _by_Test_stri p All Specific_gra unknown 1.010 unknown _5811-5 unknow n unknown vity_of_Urine _by_Test_stri p All Urobilinogen unknown 0.2 unknown _5818-0 unknow n unknown _Presence_in_ (NORMAL) Urine_by_Test _strip All WBC_urine_on unknown 0-3 /HPF unknown _5821-4 unkn own unknown _microscopy All pregnancy_te unknown unknown _[address]_date 1 Vital Signs date measurement value source 20200818 BMI 26.09 kg/m2 20200818 height_metric 172.72 cm 20200818 height_standard 68 in 20200818 weight_metric 77.56 kg 20200818 weight_standard 171 lb 20200818 BMI 26.09 kg/m2 20200818 height_metric 172.72 cm 20200818 height_standard 68 in 20200818 weight_metric 77.56 kg 20200818 weight_standard 171 lb 20200818 BMI 26.09 kg/m2 20200818 height_metric 172.72 cm 20200818 height_standard 68 in 20200818 weight_metric 77.56 kg 20200818 weight_standard 171 lb 20200818 BMI 26.09 kg/m2 20200818 height_metric 172.72 cm 20200818 height_standard 68 in 20200818 weight_metric 77.56 kg 20200818 weight_standard 171 lb 20200818 BMI 26.09 kg/m2 20200818 height_metric 172.72 cm 20200818 height_standard 68 in 20200818 weight_metric 77.56 kg 20200818 weight_standard 171 lb Social History date description facility [id number]
== END 2020-08-30 18:51 | disposition home or self-care (01) ==
LOC: DI 18:50
PROVIDERS: ATTEND Nurse Practitioner Obstetrics & Gynecology
DX: O34.81 Maternal care for other abnormalities of pelvic organs, first trimester (principal); N83.11 Corpus luteum cyst of right ovary; O41.8X10 Other specified disorders of amniotic fluid and membranes, first trimester, not applicable or unspecified; Z3A.01 Less than 8 weeks gestation of pregnancy

== ENCOUNTER 2021-06-15 12:32 | Emergency (ER) | payer OTHER ==
[2021-06-15 12:52] LABS: BASOPHILS % (AUTO) 0.1 %; EOSINOPHILS % (AUTO) 0.2 %; HCT - HEMATOCRIT 44.6 % (37.0-47.0); HGB - HEMOGLOBIN 15.9 g/dL (12.0-16.0); LYMPHOCYTES # (AUTO) 0.9 10^3/uL (1.5-3.5); LYMPHOCYTES % (AUTO) 9.2 %; MEAN CORPUSCULAR HEMOGLOBIN 31.8 pg (27.0-31.0); MEAN CORPUSCULAR HGB CONC 35.7 g/dL (32.0-36.0); MEAN CORPUSCULAR VOLUME 89.2 fL (81.0-99.0); MEAN PLATELET VOLUME 9.4 fL (7.9-10.8); MONOCYTES # (AUTO) 0.4 10^3/uL (0.0-1.0); MONOCYTES % (AUTO) 4.2 %; NEUTROPHILS # (AUTO) 8.1 10^3/uL (1.5-6.6); PLT - PLATELET COUNT 216 10^3/uL (130-450); RED CELL DISTRIBUTION WIDTH 12.1 % (12.0-15.0); WHITE BLOOD COUNT 9.4 x10^3/uL (4.8-10.8)
[2021-06-15 13:05] LABS: ALBUMIN 4.4 g/dL (3.2-5.5); ALBUMIN/GLOBULIN RATIO 1.3 (1.0-2.2); BILIRUBIN,TOTAL 0.7 mg/dL (0.2-1.0); CALCIUM 9.5 mg/dL (8.5-10.3); CREATININE 0.6 mg/dL (0.4-1.0); POTASSIUM 3.8 mmol/L (3.5-5.0); TOTAL PROTEIN 7.7 g/dL (6.7-8.2)
[2021-06-15] MEDS ORDERED: METOCLOPRAMIDE 10 MG/2 ML VIAL IVP STA (13:05)
[2021-06-15] MEDS ORDERED: DIPHENOX/ATROPINE 2.5/0.025 MG TABLET PO STA (13:05)
[2021-06-15] MEDS ORDERED: SODIUM CHLORIDE 0.9% 1,000 ML IV STA (13:05)
--- NOTE | 2021-06-15 13:06 | ED Physician Documentation ---
PD HPI ABD PAIN - Stated complaint Stated Complaint: DIARRHEA - Chief complaint Chief Complaint: Abd Pain - History obtained from History obtained from: Patient - Additional information Additional information: 30-year-old woman who is a at 10 weeks gestation presents with diarrhea starting 2 days ago and vomiting starting yesterday. She has some upper abdominal pain. No sick contacts or fevers. No cramping or bleeding. She tried Zofran and Imodium without relief. Review of Systems Ten Systems: 10 systems reviewed and negative Constitutional: denies: Fever, Chills Eyes: reports: Reviewed and negative Ears: reports: Reviewed and negative PD PAST MEDICAL HISTORY - Past Medical History Cardiovascular: None Respiratory: None Neuro: None Endocrine/Autoimmune: None GI: Other [employer]: None : None HEENT: None Psych: None Musculoskeletal: None Derm: None - Past Surgical History Past Surgical History: No /[employer]: Breast implants - Present Medications Home Medications: Ambulatory Orders Medication Instructions Recorded Confirmed Diphenoxylate/Atropine [Lomotil] 1 each PO QID PRN #20 tablet 06/15/21 Metoclopramide [Reglan] 10 mg PO Q6H PRN #20 tablet 06/15/21 Sertraline [Zoloft] 25 mg PO DAILY 06/15/21 06/15/21 - Allergies Allergies/Adverse Reactions: Allergies Allergy/AdvReac Type Severity Reaction Status Date / Time No Known Drug Allergies Allergy Verified 06/15/21 12:34 - Social History Does the pt smoke?: No Smoking Status: Never smoker Does the pt drink ETOH?: Yes Does the pt have substance abuse?: No - Immunizations Immunizations are current?: Yes - POLST Patient has POLST: No PD ED PE NORMAL - Vitals Vital signs reviewed: Yes - General General: Alert and oriented X 3, No acute distress - Neck Neck: Supple, no meningeal sign, No bony TTP - Cardiac Cardiac: RRR, No murmur - Respiratory Respiratory: No respiratory distress, Clear bilaterally - Abdomen Abdomen: Normal bowel sounds, Soft, Other (Nontender abdominal exam. 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 not requiring adjuvant therapy, bedside ultrasound shows single live intrauterine with heart rate of 160.) - Back Back: No CVA TTP, No spinal TTP - Derm Derm: Normal color, Warm and dry - Extremities Extremities: No edema, No calf tenderness / cord - Neuro Neuro: Alert and oriented X 3, Normal speech Results - Vitals Vitals: Vital Signs - 24 hr 06/15/21 06/15/21 12:35 14:26 Temperature 36.8 C Heart Rate 62 58 L Respiratory 19 14 Rate Blood Pressure 109/63 96/58 L O2 Saturation 95 100 Oxygen O2 Source Room air - Labs Labs: Laboratory Tests 06/15/21 06/15/21 06/15/21 12:40 12:45 12:45 WBC 9.4 RBC 5.00 Hgb 15.9 Hct 44.6 MCV 89.2 MCH 31.8 H MCHC 35.7 RDW 12.1 Plt Count 216 MPV 9.4 Neut # (Auto) 8.1 H Lymph # (Auto) 0.9 L Thayer # (Auto) 0.4 Eos # (Auto) 0.0 Baso # (Auto) 0.0 Absolute Nucleated RBC 0.00 Nucleated RBC % 0.0 Sodium 136 Potassium 3.8 Chloride 100 L Carbon Dioxide 26 Anion Gap 10.0 BUN 10 Creatinine 0.6 Estimated GFR (MDRD) 119 Glucose 94 Calcium 9.5 Total Bilirubin 0.7 AST 22 ALT 28 Alkaline Phosphatase 85 Total Protein 7.7 Albumin 4.4 Globulin 3.3 Albumin/Globulin Ratio 1.3 Lipase 26 Urine Color YELLOW Urine Clarity CLEAR Urine pH 6.0 Ur Specific [place] 1.025 Urine Protein NEGATIVE Urine Glucose (UA) NEGATIVE Urine Ketones NEGATIVE Urine Occult Blood NEGATIVE Urine Nitrite NEGATIVE Urine Bilirubin NEGATIVE Urine Urobilinogen 0.2 (NORMAL) Ur Leukocyte Esterase NEGATIVE Ur Microscopic Review NOT INDICATED Urine Culture Comments NOT INDICATED Urine HCG, Qual POSITIVE PD MEDICAL DECISION MAKING - ED course ED course: 30-year-old woman with viral vomiting and diarrhea in the setting of first trimester . Nontender exam and reassuring bedside ultrasound. After the administration of IV fluids, Reglan, and Lomotil she was feeling much better and passed p.o. challenge. Remained nontender on repeat emanation prior to discharge. Departure - Departure Disposition: 01 Home, Self Care Clinical Impression: Vomiting, Diarrhea Condition: Good Record reviewed to determine appropriate education?: Yes Instructions: ED Nausea Vomiting Prescriptions: Diphenoxylate/Atropine [Lomotil] 1 each PO QID PRN #20 tablet PRN Reason: Diarrhea Metoclopramide [Reglan] 10 mg PO Q6H PRN #20 tablet PRN Reason: nausea or headache Comments: I sent your prescriptions to [facility] in [place]. As we discussed if not better over the next 24 to 48 hours please return for reevaluation. Anytime if worse or if new symptoms develop. Follow-up with your OB as is routine. Discharge Date/Time: 06/15/21 14:29
[2021-06-15 13:11] LABS: BILIRUBIN,URINE NEGATIVE (NEGATIVE); GLUCOSE, URINE (UA) NEGATIVE (NEGATIVE); KETONES,URINE (UA) NEGATIVE (NEGATIVE); LEUKOCYTE ESTERASE, URINE NEGATIVE (NEGATIVE); NITRITE,URINE NEGATIVE (NEGATIVE); OCCULT BLOOD,URINE NEGATIVE (NEGATIVE); PROTEIN,URINE NEGATIVE (NEGATIVE); UROBILINOGEN,URINE 0.2 (NORMAL) E.U./dL (NORMAL)
[2021-06-15 13:12] LABS: CLARITY,URINE CLEAR (CLEAR)
[2021-06-15 13:13] LABS: HCG UR QUAL POSITIVE
[2021-06-15 14:29] VITALS: BP 96/58
== END 2021-06-15 14:29 | disposition home or self-care (01) ==
LOC: ED 12:32
DX: O98.511 Other viral diseases complicating pregnancy, first trimester (principal); B34.9 Viral infection, unspecified; R19.7 Diarrhea, unspecified; Z3A.10 10 weeks gestation of pregnancy
CPT/HCPCS: 36415; 80053; 81003; 81025; 83690; 85025; 96361; 96374; 99283; A9270; J2765; 81001; 87086